=== PATIENT | male | born 1975 | race Caucasian/White ===

== ENCOUNTER 2018-11-27 01:45 | Emergency (ER) | payer SELFPAY ==
[~2018-11-27] VITALS: Ht 198.1 cm; Wt 139.7 kg
[2018-11-27 03:11] LABS: Basophils # (auto) 0 uL; Basophils % (auto) 0.2 % (0.0-2.0); Eosinophils # (auto) 0 uL; Eosinophils % (auto) 0.2 % (0.0-7.0); Hematocrit 42.4 % (41.0-53.0); Hemoglobin 13.8 g/dL (13.5-17.5); Lymphocytes # (auto) 1.6 uL; Lymphocytes % (auto) 12.6 % (10.0-50.0); Mean Corpuscular Hemoglobin 28.8 pg (28.0-32.0); Mean Corpuscular Hgb Conc. 32.7 g/dL (32.0-36.0); Monocytes # (auto) 0.7 uL; Monocytes % (auto) 5.6 % (0.0-12.0); Neutrophils # (auto) 10.5 uL; Neutrophils % (auto) 81.4 % (37.0-80.0); Platelet Count (auto) 194 10^3/uL (140-450); Red Blood Cells 4.81 10^6/uL (4.5-5.90); Red Cell Distribution Width 13.4 % (11.8-14.3); White Blood Cell 12.9 10^3/uL (4.4-10.8)
[2018-11-27 03:20] LABS: Albumin 4.3 g/dL (3.4-5.0); Anion Gap 9 (5-15); Blood Urea Nitrogen 14 mg/dL (7-18); Calcium 9.4 mg/dL (8.5-10.1); Carbon Dioxide 27 mmol/L (21-32); Chloride 103 mmol/L (98-107); Glucose 107 mg/dL (74-106); Lipase 82 U/L (73-393); Potassium 3.5 mmol/L (3.5-5.1); Sodium 139 mmol/L (136-145)
[2018-11-27 03:27] LABS: Alanine Aminotransferase 15 U/L (16-61); Alkaline Phosphatase 70 U/L (45-117); Amylase 48 U/L (25-115); Aspartate Aminotransferase 24 U/L (15-37); BUN/Creatinine Ratio 11.5; Bilirubin, Total 0.9 mg/dL (0.2-1.0); GFR African American 83 mL/min; GFR Non-African American 69 mL/min; Total Protein 8.2 g/dL (6.4-8.2)
[2018-11-27 08:07] VITALS: BP 138/93
[2018-11-27] MEDS ORDERED: ONDANSETRON HCL 4 MG/2 ML VIAL IV ONE (09:00)
[2018-11-27] MEDS ORDERED: SODIUM CHLORIDE 0.9% 1,000 ML IV ONE (09:00)
[2018-11-27] MEDS ORDERED: FAMOTIDINE (10MG/ML) 2ML VL IV ONE (09:00)
== END 2018-11-27 09:50 | disposition home or self-care (01) ==
LOC: ER 01:45
DX: K29.00 Acute gastritis without bleeding (principal); K76.0 Fatty (change of) liver, not elsewhere classified; K76.89 Other specified diseases of liver
CPT/HCPCS: 36415; 74176; 80053; 82150; 83690; 84484; 85025; 96361; 96374; 96375; 99284; J2405; J3490; J7030